=== PATIENT | male | born 1980 | race Two or more races ===

== ENCOUNTER 2018-03-17 22:55 | Inpatient (IN) | payer BC, MEDICAID ==
[~2018-03-17] VITALS: Ht 188 cm; Wt 83.5 kg
[2018-03-17] MEDS ORDERED: NITROGLYCERIN OINT 1GM/INCH UDPKT TD ONE (23:00)
[2018-03-17] MEDS ORDERED: VANCOMYCIN 1 G PREMIX 200 ML IV ONE (23:00)
[2018-03-17] MEDS ORDERED: LEVOFLOXACIN 750MG PREMIX 150 ML IV ONE (23:00)
[2018-03-17] MEDS ORDERED: ASPIRIN 300MG SUPP PR ONE (23:00)
[2018-03-17] MEDS ORDERED: ACETAMINOPHEN 650MG SUPP PR ONE (23:15)
[2018-03-17 23:44] LABS: BG BASE EXCESS 11.1 mmol/L (-2.0-2.0); BG CARBOXYHEMOGLOBIN 0.3 % (0.5-1.5); BG DEOXYHEMOGLOBIN 11.3 % (0.0-5.0); BG FRACTION INSPIRED OXYGEN 40; BG HCO3 ACT 35.8 mmol/L (22.0-26.0); BG METHEMOGLOBIN 0.3 % (0.0-1.5); BG OXYGEN SATURATION 88.6 % (92.0-98.5); BG OXYHEMOGLOBIN 88.1 % (94.0-97.0); BG PH 7.491 (7.350-7.450); BG PO2 50.8 mmHg (75.0-100.0); BG SAMPLE SITE RIGHT RADIAL; BG TIDAL VOLUME(mL) 500 mL; BG TOTAL HEMOGLOBIN 12.2 g/dL (12.0-18.0); BG VENT MODE VENT - A/C; BG VENT RATE 12 set
[2018-03-18] VITALS (56 sets, daily range): BP systolic 98–152; BP diastolic 55–103
[2018-03-18 00:06] LABS: BASOPHILS % 0.7 % (0.0-2.0); EOSINOPHILS % 1.3 % (0.0-5.0); HEMATOCRIT. 28.7 % (42.0-52.0); HEMOGLOBIN. 9.3 g/dL (14.0-18.0); LYMPHOCYTES % 4.3 % (20.0-50.0); MEAN CORPUSCULAR HEMOGLOBIN 29.1 pg (28.0-32.0); MEAN CORPUSCULAR VOLUME 90.2 fL (80.0-94.0); MEAN PLATELET VOLUME 8.3 fl (7.4-10.4); MONOCYTES % 6.5 % (2.0-8.0); NEUTROPHILS % 87.2 % (40.0-76.0); PLATELET 429 x1000/uL (130-400); RED BLOOD CELL COUNT 3.18 mill/uL (4.7-6.1); RED CELL DISTRIBUTION WIDTH 14.7 % (11.6-14.6)
[2018-03-18 00:08] LABS: CHLORIDE 104 mEq/L (98-107)
[2018-03-18 00:11] LABS: AMMONIA 32 uMol/L (<32); INR 1.2; PROTHROMBIN TIME 12.3 sec (9.4-11.6)
[2018-03-18 00:12] LABS: ETHANOL BLOOD < 10 mg/dL
[2018-03-18 00:16] LABS: CREATINE KINASE 83 IU/L (39-308)
[2018-03-18] MEDS ORDERED: CLONIDINE 0.1MG TABLET PO PRN (02:15)
[2018-03-18] MEDS ORDERED: DOCUSATE SODIUM 100MG CAPSULE PO PRN (02:15)
[2018-03-18] MEDS ORDERED: ONDANSETRON HCL 4MG/2ML VIAL IV PRN (02:15)
[2018-03-18] MEDS ORDERED: IPRATROPIUM/ALBUTEROL 0.5-3(2.5)MG/3ML NEB INH PRN (02:15)
[2018-03-18] MEDS ORDERED: LEVOFLOXACIN 500MG PREMIX 100 ML IV SCH (02:15)
[2018-03-18] MEDS ORDERED: LORAZEPAM 2MG/ML CPJ IV PRN (02:15)
[2018-03-18 05:29] LABS: CLARITY URINE CLEAR (CLEAR); COLOR URINE YELLOW (YELLOW); KETONES URINE NEGATIVE (NEGATIVE); LEUKOCYTE ESTERASE URINE NEGATIVE (NEGATIVE); NITRITE URINE NEGATIVE (NEGATIVE); OCCULT BLOOD URINE TRACE (NEGATIVE); PROTEIN URINE NEGATIVE (NEGATIVE); SPECIFIC GRAVITY URINE 1.018 (1.005-1.030)
[2018-03-18] MEDS ORDERED: HYDR-3511 GT (05:58)
[2018-03-18] MEDS ORDERED: POLY250017 MT (05:58)
[2018-03-18] MEDS ORDERED: ACET-2178 GT (05:58)
[2018-03-18] MEDS ORDERED: LACT10SO6 GT (05:58)
[2018-03-18] MEDS ORDERED: DULO30CA2 PO (05:58)
[2018-03-18] MEDS ORDERED: TAMS0.4C31 PO (05:58)
[2018-03-18] MEDS ORDERED: IBUP-516 GT (05:58)
[2018-03-18] MEDS ORDERED: LOV40 SQ (05:58)
[2018-03-18] MEDS ORDERED: GABA-290 MT (05:58)
[2018-03-18] MEDS ORDERED: CYCL5TAB GT (05:58)
[2018-03-18] MEDS ORDERED: MAGN400C MT (05:58)
[2018-03-18 06:00] LABS: *AMPHETAMINES SCREEN URINE NEGATIVE (NEGATIVE); *BARBITURATES SCREEN URINE NEGATIVE (NEGATIVE); *BENZODIAZEPINES SCREEN URINE NEGATIVE (NEGATIVE); *COCAINE SCREEN URINE NEGATIVE (NEGATIVE); METHADONE URINE SCREEN NEGATIVE (NEGATIVE)
[2018-03-18 06:01] LABS: CANNABINOID URINE SCREEN NEGATIVE (NEGATIVE); OPIATES URINE SCREEN NEGATIVE (NEGATIVE); PHENCYCLIDINE URINE SCREEN NEGATIVE (NEGATIVE)
[2018-03-18] MEDS: METHYLPREDNISOLONE SOD SUCC 125 MG/2 ML VIAL IV SCH ×3 (06:16→17:16)
[2018-03-18] MEDS: ENOXAPARIN 40MG/0.4ML SYR SUBCUT SCH (09:51)
[2018-03-18] MEDS: ASPIRIN 81MG EC TABLET PO SCH (09:51)
[2018-03-18] MEDS: AMLODIPINE 10MG TABLET PO SCH (09:52)
[2018-03-18] MEDS: ACETAMINOPHEN 325MG TABLET PO PRN ×2 (12:18→23:27)
[2018-03-18] MEDS: SODIUM CHLORIDE 0.9% 1,000 ML IV SCH (20:25)
[2018-03-19] VITALS (19 sets, daily range): BP systolic 121–149; BP diastolic 66–88
[2018-03-19] MEDS ORDERED: LEVOFLOXACIN 500MG PREMIX 100 ML IV SCH
[2018-03-19] MEDS: METHYLPREDNISOLONE SOD SUCC 125 MG/2 ML VIAL IV SCH ×4 (00:34→18:54)
[2018-03-19 07:07] LABS: HEMATOCRIT. 27.4 % (42.0-52.0); MEAN CORPUSCULAR HEMOGLOBIN 29.5 pg (28.0-32.0); MEAN CORPUSCULAR VOLUME 89.5 fL (80.0-94.0); MEAN PLATELET VOLUME 8.5 fl (7.4-10.4); PLATELET 390 x1000/uL (130-400); RED BLOOD CELL COUNT 3.06 mill/uL (4.7-6.1); RED CELL DISTRIBUTION WIDTH 14.8 % (11.6-14.6)
[2018-03-19 07:35] LABS: CHLORIDE 101 mEq/L (98-107)
[2018-03-19 07:49] LABS: PLATELET ESTIMATE NORMAL
[2018-03-19 07:58] LABS: T4 FREE 1.05 ng/dL (0.76-1.46)
[2018-03-19 08:58] LABS: BG BASE EXCESS 7.4 mmol/L (-2.0-2.0); BG CARBOXYHEMOGLOBIN 0.3 % (0.5-1.5); BG DEOXYHEMOGLOBIN 1.1 % (0.0-5.0); BG FRACTION INSPIRED OXYGEN 50; BG HCO3 ACT 31.7 mmol/L (22.0-26.0); BG METHEMOGLOBIN 0.1 % (0.0-1.5); BG OXYGEN SATURATION 98.9 % (92.0-98.5); BG OXYHEMOGLOBIN 98.5 % (94.0-97.0); BG PCO2 44.2 mmHg (35.0-45.0); BG PH 7.474 (7.350-7.450); BG PO2 156.3 mmHg (75.0-100.0); BG SAMPLE SITE RIGHT RADIAL; BG TIDAL VOLUME(mL) 500 mL; BG TOTAL HEMOGLOBIN 10.3 g/dL (12.0-18.0); BG VENT MODE VENT - A/C; BG VENT RATE 12 set
[2018-03-19] MEDS: ENOXAPARIN 40MG/0.4ML SYR SUBCUT SCH (09:25)
[2018-03-19] MEDS: ASPIRIN 81MG EC TABLET PO SCH (09:27)
[2018-03-19] MEDS: AMLODIPINE 10MG TABLET PO SCH (09:27)
[2018-03-19] MEDS: SODIUM CHLORIDE 0.9% 1,000 ML IV SCH (10:36)
[2018-03-19] MEDS ORDERED: CEFEPIME 2,000 MG in DEXT 5% WATER 100 ML IV SCH (11:00)
[2018-03-19] MEDS ORDERED: VANCOMYCIN 2,000 MG in SODIUM CHLORIDE 0.9% 500 ML IV NR (11:00)
[2018-03-19] MEDS ORDERED: POTASSIUM CHLORIDE 20MEQ/PACKET PO SCH (15:30)
[2018-03-19] MEDS ORDERED: VANCOMYCIN 1,750 MG in SODIUM CHLORIDE 0.9% 500 ML IV SCH (19:00)
== END 2018-03-19 23:01 | disposition short-term general hospital (02) | DRG 871 ==
LOC: EDBD 03-18 00:54 → ER 03-18 00:54 → SUPCPDRO 03-18 02:01 → MICUSO 03-18 03:33 → ENRESERV 03-18 04:09 → 5EST 03-18 18:44
PROVIDERS: ADMIT Internal Medicine; ATTEND Internal Medicine
PROC: 5A1945Z Respiratory Ventilation, 24-96 Consecutive Hours (ICD-10-PCS; principal; 2018-03-18)
DX: A41.9 Sepsis, unspecified organism (principal); G82.50 Quadriplegia, unspecified; J96.21 Acute and chronic respiratory failure with hypoxia; Z99.11 Dependence on respirator [ventilator] status; Z93.0 Tracheostomy status; D64.9 Anemia, unspecified; R13.10 Dysphagia, unspecified; Y95 Nosocomial condition; L89.90 Pressure ulcer of unspecified site, unspecified stage; F41.9 Anxiety disorder, unspecified; I10 Essential (primary) hypertension; I49.5 Sick sinus syndrome; Z95.0 Presence of cardiac pacemaker; Z93.1 Gastrostomy status; Z79.899 Other long term (current) drug therapy
CPT/HCPCS: 36415; 36600; 71045; 80053; 80305; 81003; 82140; 82375; 82550; 82805; 83605; 83690; 83880; 84439; 84443; 84484; 85025; 85610; 87040; 87086; 87804; 93005; 93306; 93970; 94002; 94003; 96365; 96366; 96367; 99291; G0482; J0692; J1650; J1956; J2060; J2930; J3370; J7030; J7040; J7060; J7620